=== PATIENT | female | born 1945 | race Caucasian/White ===

== ENCOUNTER 2018-01-06 18:21 | Inpatient (IN) | payer MEDICARE, OTHER ==
[2018-01-06 19:06] LABS: BASOPHILS % (AUTO) 0.6 %; EOSINOPHILS # (AUTO) 0.1 10^3/uL (0.0-0.7); EOSINOPHILS % (AUTO) 1.7 %; HGB - HEMOGLOBIN 14.7 g/dL (12.0-16.0); LYMPHOCYTES % (AUTO) 11.7 %; MEAN CORPUSCULAR HEMOGLOBIN 28.8 pg (27.0-31.0); MEAN CORPUSCULAR HGB CONC 32.5 g/dL (32.0-36.0); MEAN CORPUSCULAR VOLUME 88.6 fL (81.0-99.0); MEAN PLATELET VOLUME 9.6 fL (7.9-10.8); MONOCYTES # (AUTO) 0.6 10^3/uL (0.0-1.0); MONOCYTES % (AUTO) 7.2 %; NEUTROPHILS # (AUTO) 6.4 10^3/uL (1.5-6.6); NEUTROPHILS % (AUTO) 78.8 %; PLT - PLATELET COUNT 155 10^3/uL (130-450); RED BLOOD COUNT 5.11 10^6/uL (4.20-5.40); WHITE BLOOD COUNT 8.2 x10^3/uL (4.8-10.8)
[2018-01-06 19:17] LABS: ALBUMIN 4.1 g/dL (3.2-5.5); ALBUMIN/GLOBULIN RATIO 1.3 (1.0-2.2); BILIRUBIN,TOTAL 1.1 mg/dL (0.2-1.0); CALCIUM 9.1 mg/dL (8.5-10.3); CREATININE 0.8 mg/dL (0.4-1.0); TOTAL PROTEIN 7.2 g/dL (6.7-8.2)
--- NOTE | 2018-01-06 19:38 | ED Physician Documentation ---
PD HPI ABD PAIN - Stated complaint Stated Complaint: ABD PX - Chief complaint Chief Complaint: Abd Pain - History obtained from History obtained from: Patient - History of Present Illness Timing - onset: Yesterday (2 separate episodes of epigastric abdominal pain at 1 PM and 9 PM lasting 15 minutes each yesterday. Gradual pain now today since waking this AM with belching and worse with deep breathing.) Review of Systems Ten Systems: 10 systems reviewed and negative Constitutional: denies: Fever, Chills Cardiac: reports: Reviewed and negative Respiratory: reports: Reviewed and negative GI: reports: Abdominal Pain. denies: Nausea, Vomiting, Constipation, Diarrhea, Hematemesis, Bloody / black stool : reports: Reviewed and negative PD PAST MEDICAL HISTORY - Allergies Allergies/Adverse Reactions: Allergies Allergy/AdvReac Type Severity Reaction Status Date / Time Penicillins Allergy Unknown Verified 01/06/18 18:37 PD ED PE NORMAL - Vitals Vital signs reviewed: Yes - General General: Alert and oriented X 3, No acute distress - HEENT HEENT: PERRL, EOMI - Neck Neck: Supple, no meningeal sign, No bony TTP - Cardiac Cardiac: RRR, No murmur - Respiratory Respiratory: No respiratory distress, Clear bilaterally - Abdomen Abdomen: Normal bowel sounds, Soft, Other (mild epigastric/RUQ TTP, neg murphys) - Back Back: No CVA TTP, No spinal TTP - Derm Derm: Normal color, Warm and dry - Extremities Extremities: No edema, No calf tenderness / cord - Neuro Neuro: Alert and oriented X 3, Normal speech Eye Opening: Spontaneous Motor: Obeys Commands Verbal: Oriented GCS Score: 15 - Psych Psych: Normal mood, Normal affect Results - Vitals Vitals: Vital Signs - 24 hr 01/06/18 01/06/18 01/06/18 18:38 20:50 21:35 Temperature 36.5 C Heart Rate 83 79 77 Respiratory 16 15 16 Rate Blood Pressure 142/91 H 116/66 127/83 H O2 Saturation 98 96 94 Oxygen O2 Source Room air - EKG (time done) 1854 Rate: Rate (enter#) (68) Rhythm: NSR [place]: Normal Intervals: Normal MI QRS: Normal Ischemia: Normal ST segments Computer interpretation: Agree with computer - Labs Labs: Laboratory Tests 01/06/18 01/06/18 01/06/18 18:57 18:57 18:57 WBC 8.2 RBC 5.11 Hgb 14.7 Hct 45.3 MCV 88.6 MCH 28.8 MCHC 32.5 RDW 14.0 Plt Count 155 MPV 9.6 Neut # 6.4 Lymph # 1.0 L [place] # 0.6 Eos # 0.1 Baso # 0.0 Absolute Nucleated RBC 0.00 Nucleated RBC % 0.0 Sodium 138 Potassium 3.8 Chloride 105 Carbon Dioxide 24 Anion Gap 9.0 BUN 14 Creatinine 0.8 Estimated GFR (MDRD) 71 L Glucose 119 H Calcium 9.1 Total Bilirubin 1.1 H AST 150 H ALT 99 H Alkaline Phosphatase 126 H Troponin I < 0.04 Total Protein 7.2 Albumin 4.1 Globulin 3.1 Albumin/Globulin Ratio 1.3 Lipase 29 Urine Color Urine Clarity Urine pH Ur Specific Ward Urine Protein Urine Glucose (UA) Urine Ketones Urine Occult Blood Urine Nitrite Urine Bilirubin Urine Urobilinogen Ur Leukocyte Esterase Ur Microscopic Review Urine Culture Comments 01/06/18 19:43 WBC RBC Hgb Hct MCV MCH MCHC RDW Plt Count MPV Neut # Lymph # [place] # Eos # Baso # Absolute Nucleated RBC Nucleated RBC % Sodium Potassium Chloride Carbon Dioxide Anion Gap BUN Creatinine Estimated GFR (MDRD) Glucose Calcium Total Bilirubin AST ALT Alkaline Phosphatase Troponin I Total Protein Albumin Globulin Albumin/Globulin Ratio Lipase Urine Color YELLOW Urine Clarity CLEAR Urine pH 5.5 Ur Specific [place] 1.015 Urine Protein NEGATIVE Urine Glucose (UA) NEGATIVE Urine Ketones NEGATIVE Urine Occult Blood NEGATIVE Urine Nitrite NEGATIVE Urine Bilirubin NEGATIVE Urine Urobilinogen 0.2 (NORMAL) Ur Leukocyte Esterase NEGATIVE Ur Microscopic Review NOT INDICATED Urine Culture Comments NOT INDICATED - Rads (name of study) RUQ sono Radiology: EMP read contemporaneously (Cholelithiasis and wall thickening concerning for cholecystitis.) PD MEDICAL DECISION MAKING - ED course ED course: 72-year-old woman with history and physical examination concerning for biliary pathology which was confirmed on ultrasound and the case was discussed by phone with the on-call surgeon, Dr. uRsso who will admit her for planned cholecystectomy tomorrow. Departure - Departure Disposition: 66 [facility] DC/Xfer Clinical Impression: Cholecystitis Condition: Stable Discharge Date/Time: 01/06/18 22:37
[2018-01-06 19:51] LABS: BILIRUBIN,URINE NEGATIVE (NEGATIVE); GLUCOSE, URINE (UA) NEGATIVE (NEGATIVE); KETONES,URINE (UA) NEGATIVE (NEGATIVE); LEUKOCYTE ESTERASE, URINE NEGATIVE (NEGATIVE); NITRITE,URINE NEGATIVE (NEGATIVE); OCCULT BLOOD,URINE NEGATIVE (NEGATIVE); PH,URINE 5.5 PH (5.0-7.5); PROTEIN,URINE NEGATIVE (NEGATIVE); UROBILINOGEN,URINE 0.2 (NORMAL) E.U./dL (NORMAL)
[2018-01-06 19:52] LABS: CLARITY,URINE CLEAR (CLEAR)
[2018-01-06] MEDS ORDERED: HYDROmorphone 2 MG/ML VIAL IVP STA (21:03)
[2018-01-06] MEDS ORDERED: ONDANSETRON 4 MG/2 ML VIAL IVP STA (21:28)
--- NOTE | 2018-01-06 21:46 | Ultrasound Report ---
EXAM: ABDOMEN ULTRASOUND LIMITED, RUQ EXAM DATE: 01/06/2018 09:21 PM. CLINICAL HISTORY: RUQ pain. COMPARISON: None. TECHNIQUE: Real-time scanning was performed with static images obtained. FINDINGS: Liver: Normal in size and echotexture. 14.4 cm. Main portal vein flow: Hepatopetal. [address] ructure in the right lobe likely reflects a hemangioma. Gallbladder: Mobile shadowing structures measuring up to 1.7 cm consistent with gallstones. Positive sonographic Elmore's sign. Mildly thickened wall. Biliary System: CBD measures 7 mm. No intrahepatic or extrahepatic ductal dilatation. Other: Right kidney demonstrates no hydronephrosis. Visualized aspects of the pancreas are unremarkab le. IMPRESSION: Findings suspicious for cholecystitis with positive sonographic Elmore sign, wall thickening, and cho lelithiasis. [facility] Referring Provider Line: [phone] SITE ID: [id number]
--- NOTE | 2018-01-06 21:46 | Ultrasound Preliminary Report ---
Exam: US ABDOMEN LIMITED IMPRESSION: Findings suspicious for cholecystitis with positive sonographic Elmore sign, wall thickening, and cho lelithiasis. [facility] SITE ID: [id number]
[2018-01-06] MEDS ORDERED: HYDROmorphone 0.5 MG/0.5 ML SYRINGE IVP PRN (22:12)
[2018-01-06] MEDS ORDERED: CIPROFLOXACIN 400 MG/200 ML 200 ML IV SCH (23:00)
[2018-01-06] MEDS ORDERED: SODIUM CHLORIDE 0.9% 1,000 ML IV SCH (23:00)
[2018-01-06] MEDS ORDERED: metroNIDAZOLE 500 MG/100 ML 500 MG/100 ML BAG IV SCH (23:00)
[2018-01-06] MEDS: SODIUM CHLORIDE 0.9% 1,000 ML IV SCH (23:15)
[2018-01-06] MEDS: SODIUM CHLORIDE FLUSH 0.9% 10 ML SYRINGE IVP SCH (23:25)
[2018-01-07 05:16] LABS: ALBUMIN 3.4 g/dL (3.2-5.5); ALBUMIN/GLOBULIN RATIO 1.4 (1.0-2.2); BILIRUBIN,TOTAL 0.7 mg/dL (0.2-1.0); CALCIUM 8.4 mg/dL (8.5-10.3); CREATININE 0.7 mg/dL (0.4-1.0); TOTAL PROTEIN 5.9 g/dL (6.7-8.2)
[2018-01-07] MEDS: SODIUM CHLORIDE 0.9% 1,000 ML IV SCH ×2 (06:33→21:13)
[2018-01-07] MEDS: HYDROmorphone 0.5 MG/0.5 ML SYRINGE IVP PRN ×3 (08:23→17:56)
[2018-01-07] MEDS ORDERED: CIPROFLOXACIN 400 MG/200 ML 200 ML IV SCH (09:00)
[2018-01-07] MEDS: SODIUM CHLORIDE FLUSH 0.9% 10 ML SYRINGE IVP PRN ×3 (11:11→17:52)
[2018-01-07] MEDS: metroNIDAZOLE 500 MG/100 ML 500 MG/100 ML BAG IV SCH ×2 (11:11→16:11)
[2018-01-07] MEDS: SODIUM CHLORIDE FLUSH 0.9% 10 ML SYRINGE IVP SCH ×2 (11:13→16:12)
--- NOTE | 2018-01-07 11:57 | HISTORY & PHYSICAL EXAMINATION ---
DATE OF SERVICE: Physician: Huy Russo MD REASON FOR ADMISSION: Abdominal pain. HISTORY OF PRESENT ILLNESS: The patient is a 72-year-old female, who on the night prior to admission started to have episodic abdominal pain. The pain returned on the day of admission and with that persisting came to the emergency room to be evaluated. She had tenderness in the right upper quadrant per the emergency room doctor. She had an abdominal ultrasound which revealed gallbladder wall thickening with gallstones being present. She had mildly elevated liver function tests with total bilirubin 1.1, AST 150, ALT 99, and alkaline phosphatase 126. Because of the elevated liver tests and ultrasound findings, the patient presumably had acute cholecystitis. ALLERGIES TO MEDICATIONS: PENICILLIN AND CODEINE. MEDICATIONS: None. HABITS: The patient denies any smoking, alcohol or drug use. PAST SURGICAL HISTORY: None. SOCIAL HISTORY: The patient is single. REVIEW OF SYSTEMS: Complete review of systems was obtained. Pertinent positives are gastrointestinal abdominal pain and nausea with mild constipation. A 12-point review of systems was obtained with pertinent positives discussed and all others being negative. PHYSICAL EXAMINATION VITAL SIGNS: Temperature is 36.6, heart rate 59, blood pressure 103/56. GENERAL: The patient is lying in bed. She is not in distress at the current time. EYES: Nonicteric. NECK: No lymphadenopathy. HEART: Regular. LUNGS: Clear. BACK: Nontender. ABDOMEN: Soft. Upon applying pressure in the right upper quadrant, the patient had mild nausea, but no tenderness. No masses, no hernias. EXTREMITIES: No edema or cyanosis. NEUROLOGICAL: The patient appears to be grossly intact neurologically. PSYCHOLOGICAL: The patient is coherent, cooperative, appears to answer questions fully. DIAGNOSTIC DATA: See history of present illness. ASSESSMENT 1. Right upper quadrant abdominal pain that has resolved with only mild nausea upon palpation to the abdominal wall. She does have gallstones on ultrasound along with mildly elevated liver function tests. This could be acute cholecystitis, but other things, such as common bile duct stone, hepatitis are all possibilities also. I recommend she undergo a hepatobiliary scan to see if she has a cystic duct occlusion or not. If it shows occlusion, then I would recommend she undergo laparoscopic cholecystectomy. The risks and possible complication of the procedure have been explained to her. 2. Ultrasound showing cholelithiasis along with mild thickened gallbladder wall. This may or may not be causing her abdominal pain. It could be that she had intermittent biliary colic that is resolving at the current time. 3. Elevated liver function tests. This could be related to acute cholecystitis, but also some type of hepatitis. She will be obtaining a hepatobiliary scan and further workup if the scan is negative. PLAN: 1. Hepatobiliary scan. 2. N.p.o. 3. IV fluids. 4. Pain medication as needed. 5. Antinausea medications as needed. TD: 01/07/2018 09:15
--- NOTE | 2018-01-07 12:01 | Nuclear Medicine Prelim Report ---
Exam: NM HEPATOBILIARY HIDA W/O RX IMPRESSION: 1. Normal uptake and excretion of activity by the liver. 2. Normal filling of the gallbladder and excretion of the bowel. [facility] SITE ID: [id number]
--- NOTE | 2018-01-07 12:02 | Nuclear Medicine Report ---
EXAM: HEPATOBILIARY SCAN EXAM DATE: 01/07/2018 10:58 AM. CLINICAL HISTORY: Right upper quadrant abdominal pain. COMPARISON: Ultrasound 01/06/2018. TECHNIQUE: Following the intravenous administration of 5.3 mCi of Tc99m Mebrofenin, a hepatobiliary s can was done centered on the liver and gallbladder in multiple sequential images and projections. FINDINGS: Normal extraction of tracer from the blood pool indicating normal hepatocellular function. The liver size and shape is grossly within normal limits. Appearance of tracer in the biliary tree as early as 10 minutes, within normal limits. Appearance of tracer in the gallbladder as early as 20 minutes, within normal limits, with good progr ession of filling throughout the remainder of the initial hour. Appearance of tracer in the small bowel as early as 30 minutes, within normal limits. Patient vomited 17 minutes after the radiopharmaceutical. IMPRESSION: 1. Normal uptake and excretion of activity by the liver. 2. Normal filling of the gallbladder and excretion of the bowel. [facility] Referring Provider Line: [phone] SITE ID: [id number]
[2018-01-07] MEDS: ONDANSETRON 4 MG/2 ML VIAL IVP PRN ×2 (12:16→17:52)
--- NOTE | 2018-01-07 17:03 | MRI Report ---
EXAM: MR ABDOMEN WITHOUT CONTRAST (MR CHOLANGIOPANCREATOGRAPHY) EXAM DATE: 01/07/2018 03:47 PM. CLINICAL HISTORY: Elevated liver function test. COMPARISON: Abdomen ultrasound 01/06/2018. HIDA scan 01/07/2018. TECHNIQUE: Multiplanar breath-hold T1 and T2 sequences obtained through the abdomen on an MR scanner. Dedicated 2D and 3D MRCP sequences obtained through the biliary and pancreatic ducts. No intravenous contrast given. FINDINGS: Lung bases appear unremarkable. Multiple gallstones are present, one of the largest measures 1.5 cm. Findings most suggestive for a s mall amount of pericholecystic fluid seen in the lateral aspect of the gallbladder. Cannot exclude as ymmetric edematous gallbladder wall thickening but this seems less likely. Acute cholecystitis is not excluded in the appropriate clinical setting. Mildly dilated common duct measuring 8 mm, tapers proximally and distally. No evidence for choledocho lithiasis. Tiny T2 hyperintensity measuring 4 mm seen at the lateral segment left hepatic lobe, could represent a tiny liver cyst. No evidence for fatty liver and the liver contour appears within normal limits. No evidence for pancreatic duct dilatation. Pancreatic duct measures 2 mm. T2 hyperintense cystic mas s seen at the uncinate process of the pancreas, measures 6 x 9 mm. The spleen and adrenals appear unremarkable. The kidneys appear unremarkable. No hydronephrosis. No acute bowel findings. IMPRESSION: 1. Cholelithiasis. Findings most suggestive for a small amount of pericholecystic fluid seen in the l ateral aspect of the gallbladder. Cannot exclude asymmetric edematous gallbladder wall thickening but this seems less likely. Acute cholecystitis is not excluded in the appropriate clinical setting. 2. Mildly dilated common duct measuring 8 mm, tapers proximally and distally. No evidence for choledo cholithiasis. 3. 9 mm cystic mass seen at the uncinate process of the pancreas. Recommend one-year follow-up MR abd omen pancreatic mass protocol to confirm stability. [facility] Referring Provider Line: [phone] SITE ID: [id number]
[2018-01-08] MEDS: SODIUM CHLORIDE FLUSH 0.9% 10 ML SYRINGE IVP PRN (00:15)
[2018-01-08] MEDS: SODIUM CHLORIDE FLUSH 0.9% 10 ML SYRINGE IVP SCH ×2 (00:15→07:19)
[2018-01-08] MEDS: SODIUM CHLORIDE 0.9% 1,000 ML IV SCH ×2 (00:15→04:55)
[2018-01-08] MEDS: HYDROmorphone 0.5 MG/0.5 ML SYRINGE IVP PRN (00:16)
[2018-01-08] MEDS: ONDANSETRON 4 MG/2 ML VIAL IVP PRN (00:17)
[2018-01-08 06:25] LABS: BASOPHILS % (AUTO) 0.5 %; EOSINOPHILS # (AUTO) 0.1 10^3/uL (0.0-0.7); EOSINOPHILS % (AUTO) 1.3 %; HGB - HEMOGLOBIN 12.5 g/dL (12.0-16.0); MEAN CORPUSCULAR HEMOGLOBIN 29.3 pg (27.0-31.0); MEAN CORPUSCULAR HGB CONC 32.5 g/dL (32.0-36.0); MEAN PLATELET VOLUME 9.9 fL (7.9-10.8); MONOCYTES # (AUTO) 0.6 10^3/uL (0.0-1.0); MONOCYTES % (AUTO) 7.7 %; NEUTROPHILS # (AUTO) 5.9 10^3/uL (1.5-6.6); NEUTROPHILS % (AUTO) 77.5 %; PLT - PLATELET COUNT 119 10^3/uL (130-450); RED BLOOD COUNT 4.25 10^6/uL (4.20-5.40); RED CELL DISTRIBUTION WIDTH 14.2 % (12.0-15.0); WHITE BLOOD COUNT 7.6 x10^3/uL (4.8-10.8)
[2018-01-08 06:40] LABS: ALBUMIN/GLOBULIN RATIO 1.3 (1.0-2.2); CALCIUM 7.8 mg/dL (8.5-10.3); CREATININE 0.6 mg/dL (0.4-1.0); TOTAL PROTEIN 5.3 g/dL (6.7-8.2)
[2018-01-08 11:27] VITALS: BP 111/95
--- NOTE | 2018-01-08 13:38 | Discharge Plan ---
Discharge Plan Disposition: 01 Home, Self Care Condition: Good Diet: Regular (low fat) Activity Restrictions: No Restrictions Shower Restrictions: No Driving Restrictions: No Weight Bearing: Full Weight No Smoking: If you smoke, Please STOP! Call for help. Follow-up with: Nati Rodriguez MD [Primary Care Provider] - 2 Weeks Huy Russo MD [Provider Admit Priv/Credential] - 2 Weeks
[2018-01-08 14:58] LABS: HEPATITIS A IGM NON-REACTIVE (NON-REACTIVE); HEPATITIS B CORE ANTIBODY IGM NON-REACTIVE (NON-REACTIVE); HEPATITIS B SURFACE ANTIGEN NON-REACTIVE (NON-REACTIVE); HEPATITIS C ANTIBODY NON-REACTIVE (NON-REACTIVE)
--- NOTE | 2018-01-23 12:11 | PROVIDER PROGRESS NOTE ---
Subjective - General Admit Date: 01/06/18 - Review of Systems General: positive: No symptoms Gastrointestinal: positive: No symptoms Objective - Lab Results Lab Results: 01/08/18 05:30 01/08/18 05:30 - Physical Exam General Appearance: positive: No acute distress Respiratory: positive: No respiratory distress Cardiovascular: positive: Regular rate & rhythm Abdomen: positive: Non-tender Impression/Plan - Problem List Problem List: RUQ abdominal pain with elevated lfts. HIDA scan neg for acute cholecystitis. MRCP no stones in cbd that is mildly dilated. LFTs improving. Possible cbd stone that passed which would be the cause of her pain and elevated lfts. Tolerating liquids. D/c home with f/u in clinic.
--- NOTE | 2018-01-23 12:12 | PROVIDER PROGRESS NOTE ---
Subjective - General Admit Date: 01/06/18 - Review of Systems General: positive: No symptoms Gastrointestinal: positive: No symptoms Objective - Lab Results Lab Results: 01/08/18 05:30 01/08/18 05:30 - Physical Exam Respiratory: positive: No respiratory distress Cardiovascular: positive: Regular rate & rhythm Abdomen: positive: Non-tender Impression/Plan - Problem List Problem List: RUQ abdominal pain with elevated lfts. HIDA scan neg for acute cholecystitis. MRCP no stones in cbd that is mildly dilated. LFTs improving. Possible cbd stone that passed which would be the cause of her pain and elevated lfts. Tolerating liquids. D/c home with f/u in clinic.
== END 2018-01-08 14:43 | disposition home or self-care (01) | DRG 446 ==
LOC: ED 18:21 → MS2 22:03
PROVIDERS: ADMIT Surgery; ATTEND Surgery
DX: K81.9 Cholecystitis, unspecified (principal); K80.00 Calculus of gallbladder with acute cholecystitis without obstruction; R79.89 Other specified abnormal findings of blood chemistry
CPT/HCPCS: 36415; 74181; 76705; 78226; 80053; 80074; 81001; 81003; 83690; 84484; 85025; 87086; 93005; 96374; 99283; 99284

== ENCOUNTER 2019-06-27 13:15 | Emergency (ER) | payer MEDICARE, OTHER ==
[2019-06-27 13:27] VITALS: BP 104/73
[2019-06-27] MEDS ORDERED: BACITRACIN ZINC OINT 1 PACKET TOP STA (14:00)
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
== END 2019-06-27 14:15 | disposition home or self-care (01) ==
LOC: ED 13:15
DX: T25.221A Burn of second degree of right foot, initial encounter (principal); T25.222A Burn of second degree of left foot, initial encounter; T31.0 Burns involving less than 10% of body surface; X12.XXXA Contact with other hot fluids, initial encounter
CPT/HCPCS: 99282; 99283; A9270

== ENCOUNTER 2021-07-26 08:00 | Outpatient (CLI) | payer MEDICARE, OTHER ==
--- NOTE | 2021-07-26 16:55 | XRAY Report ---
PROCEDURE: Chest 2 View X-Ray INDICATIONS: ATYPICAL CHEST PAIN TECHNIQUE: 2 view(s) of the chest. COMPARISON: None. FINDINGS: Surgical changes and devices: None. Lungs and pleura: No pleural effusions or pneumothorax. Lungs are clear. Mediastinum: Mediastinal contours are normal. Heart size is normal. Bones and chest wall: No suspicious bony abnormalities. Soft tissues appear unremarkable. IMPRESSION: No acute cardiopulmonary pathology. Reviewed by: Finn Ramires MD on 07/26/2021 4:54 PM [facility] Approved by: Finn Ramires MD on 07/26/2021 4:54 PM [facility] Station ID: [id number]
== END 2021-07-26 23:59 | disposition home or self-care (01) ==
LOC: DI.S 08:00
PROVIDERS: ATTEND Physician Assistant Medical
DX: R07.89 Other chest pain (principal)